=== PATIENT | female | born 1960 | race African-American/Black ===

== ENCOUNTER 2025-04-28 10:23 | Inpatient (IN) | payer MEDICARE, MEDICAID ==
[~2025-04-28] VITALS: Ht 162.6 cm; Wt 55.8 kg
[2025-04-28] VITALS (46 sets, daily range): BP systolic 85–176; BP diastolic 62–139; PULSE 41–158; RESP 15–25; TEMP 36.5–36.8; O2SAT 100
[2025-04-28] MEDS ORDERED: FENTANYL 2500MCG/250ML PMX 250 ML IV SCH (10:45)
[2025-04-28] MEDS: SUCCINYLCHOLINE CHLORIDE 200MG/10ML IV ONE (11:01)
[2025-04-28] MEDS: PROPOFOL 10MG/ML 100ML 100 ML IV SCH (11:01)
[2025-04-28] MEDS: ETOMIDATE 2MG/ML 10ML VIAL IV ONE (11:01)
[2025-04-28] MEDS: SODIUM CHLORIDE 0.9% (SEPSIS BOLUS) IV ONE (11:15)
[2025-04-28 11:43] LABS: BASOPHILS % 0.9 % (0.0-2.0); EOSINOPHILS % 1.0 % (0.0-5.0); HEMATOCRIT. 41.2 % (36.0-48.0); HEMOGLOBIN. 11.2 g/dL (12.0-16.0); LYMPHOCYTES % 27.2 % (20.0-50.0); MEAN PLATELET VOLUME 10.9 fl (7.4-10.4); MONOCYTES % 11.7 % (2.0-8.0); NEUTROPHILS % 59.2 % (40.0-76.0); PLATELET 142 x1000/uL (130-400); RED BLOOD CELL COUNT 5.31 mill/uL (4.2-5.4); RED CELL DISTRIBUTION WIDTH 19.8 % (11.6-14.6)
[2025-04-28 11:53] LABS: BG BASE EXCESS -4.1 mmol/L (-2.0-3.0); BG CARBOXYHEMOGLOBIN 2.5 % (0.5-1.5); BG DEOXYHEMOGLOBIN 1.6 % (0.0-5.0); BG FRACTION INSPIRED OXYGEN 100; BG HCO3 ACT 25.4 mmol/L (21.0-28.0); BG METHEMOGLOBIN 0.5 % (0.5-1.5); BG OXYGEN SATURATION 98.4 % (94.0-98.0); BG OXYHEMOGLOBIN 95.4 % (94.0-98.0); BG PCO2 68.2 mmHg (32.0-45.0); BG PH 7.189 (7.350-7.450); BG PO2 131.6 mmHg (83.0-108.0); BG SAMPLE SITE RIGHT RADIAL; BG TIDAL VOLUME(mL) 450.0 mL; BG TOTAL HEMOGLOBIN 13.6 g/dL (12.0-16.0); BG TOTAL RESPIRATORY RATE 20 b/min; BG VENT MODE VENT - AC; BG VENT RATE 20.0 set
[2025-04-28 11:57] LABS: INR 1.2
[2025-04-28 12:10] LABS: CREATININE 0.6 mg/dL (0.6-1.0); UREA NITROGEN BLOOD 9 mg/dL (9-23)
[2025-04-28 12:11] LABS: ETHANOL BLOOD < 10 mg/dL (<10)
[2025-04-28 12:12] LABS: ASPARTATE AMINOTRANSFERASE 39 IU/L (<34); BILIRUBIN DIRECT 0.1 mg/dL (<=3.0); BILIRUBIN TOTAL 0.3 mg/dL (0.1-1.0); PROTEIN TOTAL 3.9 g/dL (6.0-8.3)
[2025-04-28 12:19] LABS: TROPONIN I HIGH SENSITIVITY 54 ng/L (3.0-34)
[2025-04-28] MEDS: FENTANYL CITRATE/PF 2,500 MCG in DEXT 5% WATER 200 ML IV SCH (12:22)
[2025-04-28] MEDS: PIPERACILLIN/TAZO 3.375G/50ML 50 ML IV ONE (12:23)
[2025-04-28] MEDS ORDERED: POTASSIUM CHLORIDE 40 MEQ in DEXT 5% WATER 230 ML IV ONE (12:45)
[2025-04-28] MEDS ORDERED: FUROSEMIDE 40MG/4ML VIAL IVP NR (12:45)
[2025-04-28] MEDS ORDERED: ONDANSETRON HCL 4MG/2ML INJ IV PRN (12:45)
[2025-04-28] MEDS ORDERED: DEXTROSE 50% WATER 50ML SYRINGE IV PRN (12:45)
[2025-04-28] MEDS ORDERED: IPRATROPIUM/ALBUTEROL 0.5-3(2.5)MG/3ML NEB HHN PRN ×2 (12:45)
[2025-04-28] MEDS ORDERED: ACETAMINOPHEN 325MG TABLET PO PRN ×2 (12:45)
[2025-04-28] MEDS ORDERED: NOREPINEPHRINE 8 MG in DEXT 5% WATER 242 ML IV PRN (13:00)
[2025-04-28] MEDS: NOREPINEPHRINE 8MG/250ML PMX 250 ML IV PRN (13:07)
[2025-04-28] MEDS: NOREPINEPHRINE 8MG/250ML PMX 250 ML IV ONE (13:08)
[2025-04-28] MEDS ORDERED: LORAZEPAM 2MG/ML UD SYRINGE IV NR (13:15)
[2025-04-28] MEDS: VANCOMYCIN 1G PREMIX 200 ML IV ONE (13:18)
[2025-04-28] MEDS ORDERED: KCL 20MEQ/100ML X 2 FOR TOTAL KCL 40MEQ/200ML IV SCH (13:30)
[2025-04-28 13:35] LABS: INFLUENZA TYPE A Presumptive Negative (Pres. Neg.)
[2025-04-28 13:36] LABS: INFLUENZA TYPE B Presumptive Negative (Pres. Neg.); RESPIRATORY SYNCYTIAL VIRUS Not Detected (Not Detectd)
[2025-04-28] MEDS: CALCIUM CHLORIDE 1GM/10ML SYR IV ONE (13:51)
[2025-04-28] MEDS: PANTOPRAZOLE 40MG DR TABLET PO SCH (15:34)
[2025-04-28] MEDS: KCL 20MEQ/100ML PREMIX 100 ML IV SCH (15:34)
[2025-04-28] MEDS: MAGNESIUM 4 G PREMIX 100 ML IV NR (15:40)
[2025-04-28] MEDS ORDERED: KCL 20MEQ/100ML PREMIX 100 ML IV NR (16:00)
[2025-04-28] MEDS: BLOOD SUGAR DIAGNOSTIC STRIP TEST SCH (16:00)
[2025-04-28 16:31] LABS: CLARITY URINE CLEAR (CLEAR); COLOR URINE YELLOW (YELLOW); GLUCOSE URINE NEGATIVE (NEGATIVE); KETONES URINE NEGATIVE (NEGATIVE); LEUKOCYTE ESTERASE URINE NEGATIVE (NEGATIVE); NITRITE URINE NEGATIVE (NEGATIVE); OCCULT BLOOD URINE NEGATIVE (NEGATIVE); PH URINE 6.5 (4.5-8.0); PROTEIN URINE 2+ (NEGATIVE); SPECIFIC GRAVITY URINE 1.012 (1.005-1.030); UROBILINOGEN URINE 0.2 E.U./dL (0.2-1.0)
[2025-04-28] MEDS: FUROSEMIDE 40MG/4ML VIAL IVP SCH (17:02)
[2025-04-28] MEDS: ENOXAPARIN 40MG/0.4ML SYR SUBCUT SCH (17:02)
[2025-04-28] MEDS: PROPOFOL 10MG/ML 100ML 100 ML IV PRN (17:03)
[2025-04-28 17:20] LABS: *AMPHETAMINES SCREEN URINE NEGATIVE (NEGATIVE); *BARBITURATES SCREEN URINE NEGATIVE (NEGATIVE); *BENZODIAZEPINES SCREEN URINE NEGATIVE (NEGATIVE); *COCAINE SCREEN URINE PRESUMPTIVE POSITIVE (NEGATIVE); CANNABINOID URINE SCREEN NEGATIVE (NEGATIVE); ECSTASY MDMA SCREEN URINE NEGATIVE (NEGATIVE); METHADONE URINE SCREEN NEGATIVE (NEGATIVE); OPIATES URINE SCREEN NEGATIVE (NEGATIVE); PHENCYCLIDINE URINE SCREEN PRESUMTIVE POSITIVE (NEGATIVE)
[2025-04-28 17:21] LABS: BACTERIA URINE 1+; RBC URINE 0-2 /hpf (0-2); SQUAMOUS EPITHELIAL CELL URINE FEW /lpf (RARE/1+); WBC URINE 0-2 /hpf (0-2)
[2025-04-28 17:46] LABS: CREATINE KINASE MB FRACTION 5.2 ng/mL (0.5-3.6)
[2025-04-28] MEDS ORDERED: IPRATROPIUM/ALBUTEROL 0.5-3(2.5)MG/3ML NEB HHN SCH (18:00)
[2025-04-28] MEDS: FENTANYL CITRATE/PF 2,500 MCG in SODIUM CHLORIDE 0.9% 200 ML IV PRN (18:01)
[2025-04-28 18:04] LABS: TROPONIN I HIGH SENSITIVITY 160 ng/L (3.0-34)
[2025-04-28] MEDS ORDERED: ATROPINE SULFATE 1MG/10ML SYR IV PRN (18:15)
[2025-04-28] MEDS: DEXT 5%/0.45% NACL 1000ML 1,000 ML IV SCH (18:52)
[2025-04-28 20:02] LABS: BG BASE EXCESS 3.5 mmol/L (-2.0-3.0); BG CARBOXYHEMOGLOBIN 0.9 % (0.5-1.5); BG DEOXYHEMOGLOBIN 4.1 % (0.0-5.0); BG FRACTION INSPIRED OXYGEN 70; BG HCO3 ACT 24.1 mmol/L (21.0-28.0); BG METHEMOGLOBIN 0.3 % (0.5-1.5); BG OXYGEN SATURATION 95.9 % (94.0-98.0); BG OXYHEMOGLOBIN 94.7 % (94.0-98.0); BG PCO2 25.6 mmHg (32.0-45.0); BG PEEP (cmH2O) 5.0 cmH2O; BG PH 7.591 (7.350-7.450); BG PO2 65.4 mmHg (83.0-108.0); BG SAMPLE SITE RIGHT BRACHIAL; BG TIDAL VOLUME(mL) 450.0 mL; BG TOTAL HEMOGLOBIN 13.1 g/dL (12.0-16.0); BG TOTAL RESPIRATORY RATE 24 b/min; BG VENT MODE VENT - AC; BG VENT RATE 24.0 set
[2025-04-28] MEDS: IPRATROPIUM/ALBUTEROL 0.5-3(2.5)MG/3ML NEB HHN SCH (20:40)
[2025-04-28] MEDS ORDERED: DOPAMINE 400MG/250ML PREMIX 250 ML IV PRN (21:00)
[2025-04-28] MEDS: PIPERACILLIN/TAZO 3.375G/50ML 50 ML IV NR (22:09)
[2025-04-28 23:57] LABS: BG BASE EXCESS 2.5 mmol/L (-2.0-3.0); BG CARBOXYHEMOGLOBIN 0.5 % (0.5-1.5); BG DEOXYHEMOGLOBIN 0.6 % (0.0-5.0); BG FRACTION INSPIRED OXYGEN 80; BG HCO3 ACT 24.3 mmol/L (21.0-28.0); BG METHEMOGLOBIN 0.0 % (0.5-1.5); BG OXYGEN SATURATION 99.4 % (94.0-98.0); BG OXYHEMOGLOBIN 98.9 % (94.0-98.0); BG PCO2 29.5 mmHg (32.0-45.0); BG PEEP (cmH2O) 5.0 cmH2O; BG PH 7.534 (7.350-7.450); BG PO2 141.3 mmHg (83.0-108.0); BG SAMPLE SITE RIGHT BRACHIAL; BG TIDAL VOLUME(mL) 450.0 mL; BG TOTAL HEMOGLOBIN 12.7 g/dL (12.0-16.0); BG VENT MODE VENT - AC; BG VENT RATE 20.0 set
[2025-04-29] VITALS (101 sets, daily range): BP systolic 77–125; BP diastolic 57–82; PULSE 42–82; RESP 12–20; TEMP 36.1–36.9; O2SAT 93–100
[2025-04-29 00:23] LABS: CREATININE 0.8 mg/dL (0.6-1.0)
[2025-04-29 00:24] LABS: UREA NITROGEN BLOOD 11 mg/dL (9-23)
[2025-04-29 00:25] LABS: CREATINE KINASE MB FRACTION 2.8 ng/mL (0.5-3.6)
[2025-04-29 00:26] LABS: PHOSPHORUS 2.5 mg/dL (2.5-4.9)
[2025-04-29 00:34] LABS: TROPONIN I HIGH SENSITIVITY 113 ng/L (3.0-34)
[2025-04-29] MEDS: BUDESONIDE 0.5MG/2ML NEB HHN SCH (02:20)
[2025-04-29 02:53] LABS: BG BASE EXCESS 3.8 mmol/L (-2.0-3.0); BG CARBOXYHEMOGLOBIN 0.9 % (0.5-1.5); BG DEOXYHEMOGLOBIN 2.1 % (0.0-5.0); BG FRACTION INSPIRED OXYGEN 60; BG HCO3 ACT 28.1 mmol/L (21.0-28.0); BG METHEMOGLOBIN 0.1 % (0.5-1.5); BG OXYGEN SATURATION 97.9 % (94.0-98.0); BG OXYHEMOGLOBIN 96.9 % (94.0-98.0); BG PCO2 41.2 mmHg (32.0-45.0); BG PEEP (cmH2O) 5.0 cmH2O; BG PH 7.451 (7.350-7.450); BG PO2 96.9 mmHg (83.0-108.0); BG SAMPLE SITE RIGHT BRACHIAL; BG TIDAL VOLUME(mL) 450.0 mL; BG TOTAL HEMOGLOBIN 13.0 g/dL (12.0-16.0); BG VENT MODE VENT - AC; BG VENT RATE 16.0 set
[2025-04-29] MEDS: PIPERACILLIN/TAZO 3.375G/50ML 50 ML IV SCH (06:23)
[2025-04-29 06:50] LABS: HEMATOCRIT. 41.1 % (36.0-48.0); HEMOGLOBIN. 11.7 g/dL (12.0-16.0); MEAN PLATELET VOLUME 10.6 fl (7.4-10.4); PLATELET 155 x1000/uL (130-400); RED BLOOD CELL COUNT 5.42 mill/uL (4.2-5.4); RED CELL DISTRIBUTION WIDTH 19.7 % (11.6-14.6)
[2025-04-29 07:11] LABS: PHOSPHORUS 2.9 mg/dL (2.5-4.9)
[2025-04-29 07:14] LABS: CREATININE 0.9 mg/dL (0.6-1.0)
[2025-04-29 07:15] LABS: T4 FREE 1.17 ng/dL (0.89-1.76); TRIGLYCERIDE 195 mg/dL (0-150); UREA NITROGEN BLOOD 16 mg/dL (9-23)
[2025-04-29 07:16] LABS: LDL CHOLESTEROL 97 mg/dL (5-100)
[2025-04-29] MEDS: MIDAZOLAM 100MG/100ML PMX 100 ML IV PRN (08:46)
[2025-04-29] MEDS ORDERED: NOREPINEPHRINE 8MG/250ML PMX 250 ML IV PRN (09:15)
[2025-04-29 09:21] LABS: BG BASE EXCESS 1.9 mmol/L (-2.0-3.0); BG CARBOXYHEMOGLOBIN 1.0 % (0.5-1.5); BG DEOXYHEMOGLOBIN 5.6 % (0.0-5.0); BG FRACTION INSPIRED OXYGEN 40; BG HCO3 ACT 28.3 mmol/L (21.0-28.0); BG METHEMOGLOBIN 0.1 % (0.5-1.5); BG OXYGEN SATURATION 94.3 % (94.0-98.0); BG OXYHEMOGLOBIN 93.3 % (94.0-98.0); BG PCO2 51.6 mmHg (32.0-45.0); BG PEEP (cmH2O) 5.0 cmH2O; BG PH 7.357 (7.350-7.450); BG PO2 76.4 mmHg (83.0-108.0); BG SAMPLE SITE RIGHT RADIAL; BG TIDAL VOLUME(mL) 500.0 mL; BG TOTAL HEMOGLOBIN 12.9 g/dL (12.0-16.0); BG VENT MODE VENT - AC; BG VENT RATE 20.0 set
[2025-04-29 14:32] LABS: BAND% 5.0 % (1.0-6.0); EOSINOPHILS % MANUAL 2.0 % (0.0-5.0); LYMPHOCYTES % MANUAL 40.0 % (20.0-60.0); MONOCYTES % MANUAL 21.0 % (2.0-8.0); NEUTROPHILS % MANUAL 32.0 % (45.0-75.0); PLATELET ESTIMATE NORMAL
[2025-04-29 15:10] LABS: ASPARTATE AMINOTRANSFERASE 59 IU/L (<34); BILIRUBIN DIRECT 0.3 mg/dL (<=3.0); BILIRUBIN TOTAL 0.6 mg/dL (0.1-1.0); PROTEIN TOTAL 5.1 g/dL (6.0-8.3)
[2025-04-29] MEDS: ATORVASTATIN CALCIUM 40MG TABLET PO SCH (21:26)
[2025-04-30] VITALS (95 sets, daily range): BP systolic 95–147; BP diastolic 54–120; PULSE 46–148; RESP 10–28; TEMP 36.7–37.1; O2SAT 94–100
[2025-04-30 07:11] LABS: PLATELET 133 x1000/uL (130-400); RED BLOOD CELL COUNT 5.28 mill/uL (4.2-5.4); RED CELL DISTRIBUTION WIDTH 20.0 % (11.6-14.6)
[2025-04-30 07:27] LABS: CREATININE 0.9 mg/dL (0.6-1.0); UREA NITROGEN BLOOD 9 mg/dL (9-23)
[2025-04-30 08:53] LABS: BG BASE EXCESS 4.8 mmol/L (-2.0-3.0); BG CARBOXYHEMOGLOBIN 1.4 % (0.5-1.5); BG DEOXYHEMOGLOBIN 5.1 % (0.0-5.0); BG FRACTION INSPIRED OXYGEN 35; BG HCO3 ACT 30.9 mmol/L (21.0-28.0); BG METHEMOGLOBIN 0.2 % (0.5-1.5); BG OXYGEN SATURATION 94.8 % (94.0-98.0); BG OXYHEMOGLOBIN 93.3 % (94.0-98.0); BG PCO2 52.5 mmHg (32.0-45.0); BG PEEP (cmH2O) 5.0 cmH2O; BG PH 7.388 (7.350-7.450); BG PO2 74.6 mmHg (83.0-108.0); BG SAMPLE SITE RIGHT RADIAL; BG TIDAL VOLUME(mL) 400.0 mL; BG TOTAL HEMOGLOBIN 12.8 g/dL (12.0-16.0); BG VENT MODE VENT - AC; BG VENT RATE 12.0 set
[2025-04-30] MEDS ORDERED: AZITHROMYCIN 500MG/250ML 250 ML IV SCH (11:00)
[2025-04-30] MEDS ORDERED: LIDOCAINE HCL 1% 10 MG/ML 10ML VIAL ONE (11:57)
[2025-04-30] MEDS: AZITHROMYCIN 500MG/250ML 250 ML IV SCH (12:18)
[2025-04-30] MEDS ORDERED: DEXT 5% WATER 100 ML IV ONE (14:00)
[2025-04-30 15:31] LABS: BG BASE EXCESS 4.7 mmol/L (-2.0-3.0); BG CARBOXYHEMOGLOBIN 2.2 % (0.5-1.5); BG DEOXYHEMOGLOBIN 3.2 % (0.0-5.0); BG FRACTION INSPIRED OXYGEN 35; BG HCO3 ACT 30.2 mmol/L (21.0-28.0); BG METHEMOGLOBIN 0.2 % (0.5-1.5); BG OXYGEN SATURATION 96.7 % (94.0-98.0); BG OXYHEMOGLOBIN 94.4 % (94.0-98.0); BG PCO2 47.9 mmHg (32.0-45.0); BG PEEP (cmH2O) 5.0 cmH2O; BG PH 7.417 (7.350-7.450); BG PO2 79.9 mmHg (83.0-108.0); BG SAMPLE SITE RIGHT RADIAL; BG TOTAL HEMOGLOBIN 13.2 g/dL (12.0-16.0); BG VENT MODE VENT - CPAP
[2025-04-30] MEDS: DEXTROSE 5% WATER 1,000 ML IV SCH (16:10)
[2025-04-30] MEDS ORDERED: CALCIUM CHLORIDE 1GM/10ML SYR IV ONE (22:15)
[2025-04-30] MEDS: LACTATED RINGERS 500 ML IV SCH (23:15)
[2025-04-30] MEDS: ACETAMINOPHEN 325MG SUPP PR NR (23:18)
[2025-04-30] MEDS: CALCIUM GLUCONATE 1GM PREMIX 50 ML IV NR (23:18)
[2025-04-30] MEDS ORDERED: AMIODARONE 360MG/200ML 200 ML IV SCH (23:45)
[2025-05-01] VITALS (25 sets, daily range): BP systolic 88–134; BP diastolic 47–113; PULSE 64–141; RESP 11–26; TEMP 36.8–37.2; O2SAT 91–100
[2025-05-01] MEDS: DEXT 5%/0.9% NACL 1,000 ML IV SCH (01:07)
[2025-05-01] MEDS: AMIODARONE HCL 900 MG in DEXT 5% WATER 500 ML IV SCH (01:07)
[2025-05-01 09:04] LABS: PLATELET 159 x1000/uL (130-400); RED BLOOD CELL COUNT 5.71 mill/uL (4.2-5.4); RED CELL DISTRIBUTION WIDTH 19.4 % (11.6-14.6)
[2025-05-01 09:17] LABS: CREATININE 0.8 mg/dL (0.6-1.0); UREA NITROGEN BLOOD 7 mg/dL (9-23)
[2025-05-01] MEDS: BLOOD SUGAR DIAGNOSTIC STRIP TEST SCH (17:30)
[2025-05-01] MEDS: INSULIN LISPRO 100 UNITS/ML SUBCUT SCH (18:00)
[2025-05-02] VITALS (12 sets, daily range): BP systolic 114–124; BP diastolic 71–97; PULSE 68–90; RESP 13–33; TEMP 36.4–36.9; O2SAT 96–99
[2025-05-02] MEDS: AZITHROMYCIN 500 MG TABLET PO SCH (13:03)
[2025-05-03] VITALS (10 sets, daily range): BP systolic 118–132; BP diastolic 69–99; PULSE 61–89; RESP 14–28; TEMP 36.4–37; O2SAT 93–97
[2025-05-03] MEDS: METOPROLOL TARTRATE 25MG TABLET PO SCH (11:32)
[2025-05-03 12:50] LABS: BODY FLUID MONOCYTES 11 %
[2025-05-03 12:51] LABS: BODY FLUID RBC 810 /cu mm (0-2000); BODY FLUID WBC 225 /cu mm (0-200)
[2025-05-03 13:23] LABS: PROTEIN BODY FLUID < 2.0 gm/dL
[2025-05-03 13:45] LABS: RED BLOOD CELL COUNT 5.89 mill/uL (4.2-5.4); RED CELL DISTRIBUTION WIDTH 19.1 % (11.6-14.6)
[2025-05-03 13:58] LABS: INR 1.0
[2025-05-03 14:07] LABS: CREATININE 0.8 mg/dL (0.6-1.0); UREA NITROGEN BLOOD 9 mg/dL (9-23)
[2025-05-03 14:08] LABS: LACTATE DEHYDROGENASE 269 IU/L (120-246)
[2025-05-03 14:28] LABS: PLATELET 116 x1000/uL (130-400)
[2025-05-03] MEDS: POTASSIUM CHLORIDE 20MEQ TABLET SR PO SCH (15:49)
[2025-05-03] MEDS: CEFTRIAXONE 1GM/50ML 50 ML IV SCH (17:42)
[2025-05-03] MEDS: SACUBITRIL/VALSARTAN 24MG/26MG TABLET PO SCH (21:03)
[2025-05-04 04:00] VITALS: PULSE 65; RESP 12
[2025-05-04 07:45] LABS: RED BLOOD CELL COUNT 6.24 mill/uL (4.2-5.4); RED CELL DISTRIBUTION WIDTH 19.5 % (11.6-14.6)
[2025-05-04 07:55] LABS: CREATININE 0.6 mg/dL (0.6-1.0); UREA NITROGEN BLOOD 12 mg/dL (9-23)
[2025-05-04 08:00] VITALS: PULSE 64; RESP 14; TEMP 36.8; O2SAT 92
[2025-05-04 08:50] LABS: PLATELET 111 x1000/uL (130-400)
[2025-05-04 12:00] VITALS: BP 117/87; PULSE 69; RESP 15; TEMP 36.8; O2SAT 97
[2025-05-04] MEDS ORDERED: SACU1TAB PO (13:31)
[2025-05-04] MEDS ORDERED: LIP40 PO (13:31)
[2025-05-04] MEDS ORDERED: FURO-151 MT (13:32)
[2025-05-04] MEDS ORDERED: METO25TA6 PO (13:32)
[2025-05-04 14:42] VITALS: BP 117/85; PULSE 79; RESP 16; TEMP 98.2
== END 2025-05-04 15:50 | disposition home or self-care (01) | DRG 208 ==
LOC: ER 10:34 → EDBD 12:03 → CVICU 12:03 → EDBEDREQTM 12:04 → EDBEDREQ 12:04 → ENRESERV 12:32 → 5EST 05-01 04:30
PROVIDERS: ADMIT Internal Medicine; ATTEND Internal Medicine
PROC: 5A1945Z Respiratory Ventilation, 24-96 Consecutive Hours (ICD-10-PCS; principal; 2025-04-28)
PROC: 0BH17EZ Insertion of Endotracheal Airway into Trachea, Via Natural or Artificial Opening (ICD-10-PCS; 2025-04-28)
PROC: 02H633Z Insertion of Infusion Device into Right Atrium, Percutaneous Approach (ICD-10-PCS; 2025-04-30)
PROC: B548ZZA Ultrasonography of Superior Vena Cava, Guidance (ICD-10-PCS; 2025-04-30)
PROC: 0W9B3ZZ Drainage of Left Pleural Cavity, Percutaneous Approach (ICD-10-PCS; 2025-05-03)
DX: J96.02 Acute respiratory failure with hypercapnia (principal); G92.8 Other toxic encephalopathy; J18.9 Pneumonia, unspecified organism; I50.21 Acute systolic (congestive) heart failure; I31.39 Other pericardial effusion (noninflammatory); R57.9 Shock, unspecified; E87.0 Hyperosmolality and hypernatremia; E83.51 Hypocalcemia; I47.20 Ventricular tachycardia, unspecified; N17.9 Acute kidney failure, unspecified; J91.8 Pleural effusion in other conditions classified elsewhere; J96.01 Acute respiratory failure with hypoxia; I08.1 Rheumatic disorders of both mitral and tricuspid valves; I65.23 Occlusion and stenosis of bilateral carotid arteries; F14.10 Cocaine abuse, uncomplicated; E11.9 Type 2 diabetes mellitus without complications; E87.4 Mixed disorder of acid-base balance; Z59.00 Homelessness unspecified; T50.991A Poisoning by other drugs, medicaments and biological substances, accidental (unintentional), initial encounter; J34.1 Cyst and mucocele of nose and nasal sinus; X58.XXXA Exposure to other specified factors, initial encounter; E78.5 Hyperlipidemia, unspecified; E87.6 Hypokalemia; E83.42 Hypomagnesemia; E88.09 Other disorders of plasma-protein metabolism, not elsewhere classified; S80.211A Abrasion, right knee, initial encounter; I49.3 Ventricular premature depolarization; F16.10 Hallucinogen abuse, uncomplicated; F11.10 Opioid abuse, uncomplicated; Z78.1 Physical restraint status; Z79.899 Other long term (current) drug therapy; Y93.89 Activity, other specified; Y92.89 Other specified places as the place of occurrence of the external cause
CPT/HCPCS: 31500; 32555; 36415; 36573; 36600; 71045; 76604; 80048; 80061; 80076; 80305; 80320; 81003; 82040; 82330; 82375; 82550; 82553; 82805; 82962; 83036; 83605; 83615; 83735; 83880; 84100; 84145; 84439; 84443; 84484; 85025; 85027; 86850; 86900; 87070; 87420; 87426; 87804; 88108; 88312; 93005; 93306; 93970; 94002; 94003; 94070; 94640; 94660; 94664; 96361; 96374; 97161; 99291; 99292; A4606; A4615; C1725; J0282; J0456; J0612; J0696; J1265; J1650; J1815; J1938; J2003; J2543; J2704; J3010; J3373; J3475; J3480; J3490; J7030; J7042; J7050; J7060; J7070; J7626; G0480